=== PATIENT | female | born 1960 | race Two or more races ===

== ENCOUNTER 2019-12-11 20:00 | Inpatient (IN) | payer MEDICAID, OTHER ==
[~2019-12-11] VITALS: Ht 157.5 cm; Wt 71.0 kg
[2019-12-11 21:02] LABS: Urine Bacteria NONE SEEN /hpf (None Seen); Urine Blood Negative /uL (Negative); Urine Specific Gravity 1.004 (1.001-1.035); Urine WBC 2 /hpf (0 - 5)
[2019-12-11] MEDS ORDERED: ONDANSETRON HCL 4 MG/2 ML VIAL IV ONE (21:15)
[2019-12-11] MEDS ORDERED: MORPHINE SULFATE 4 MG/ML SYR/VIAL IV ONE (21:15)
[2019-12-11 21:18] LABS: Basophils # (auto) 0 10 ^3/uL (0-0.2); Basophils % (auto) 0.2 % (0.0-2.0); Eosinophils # (auto) 0 10 ^3/uL (0-0.8); Hematocrit 25.4 % (36.0-46.0); Hemoglobin 8.1 g/dL (12.2-16.2); Lymphocytes # (auto) 1.4 10 ^3/uL (0.4-5.4); Lymphocytes % (auto) 13.3 % (10.0-50.0); Mean Corpuscular Hemoglobin 23.8 pg (28.0-32.0); Mean Corpuscular Hgb Conc. 31.9 g/dL (32.0-36.0); Mean Corpuscular Volume 74.6 fL (80.0-100.0); Monocytes # (auto) 0.4 10 ^3/uL (0-1.3); Monocytes % (auto) 3.6 % (0.0-12.0); Neutrophils # (auto) 8.9 10 ^3/uL (1.6-8.6); Neutrophils % (auto) 82.9 % (37.0-80.0); Nucleated Red Blood Cells % 0.1 %; Platelet Count (auto) 292 10^3/uL (140-450); Red Cell Distribution Width 18.8 % (11.8-14.3); White Blood Cell 10.8 10^3/uL (4.4-10.8)
[2019-12-11 21:37] LABS: Albumin 3.5 g/dL (3.4-5.0); Potassium 4.1 mmol/L (3.5-5.1)
[2019-12-11 21:44] LABS: BUN/Creatinine Ratio 14.3; Bilirubin, Total 0.2 mg/dL (0.2-1.0); Total Protein 7.1 g/dL (6.4-8.2)
[2019-12-11 21:53] LABS: INR 0.97 (0.9-1.15)
[2019-12-11] MEDS ORDERED: IOHEXOL 350 MG/ML 100ML IJ ONE (22:28)
[2019-12-11] MEDS ORDERED: ENOXAPARIN SOD 60 MG/0.6 ML SYRINGE SC ONE (23:30)
[2019-12-12] MEDS ORDERED: NITROGLYCERIN 0.4 MG SL TAB SL PRN (01:15)
[2019-12-12] MEDS ORDERED: SODIUM CHLORIDE 0.9% 1,000 ML IV SCH (01:15)
[2019-12-12] MEDS ORDERED: ONDANSETRON HCL 4 MG/2 ML VIAL IV PRN (01:15)
[2019-12-12] MEDS ORDERED: DEXTROSE (50%) 50ML SYRG IV PRN (01:15)
[2019-12-12 02:20] VITALS: BP 133/62
--- NOTE | 2019-12-12 02:25 | NUR ---
Telemetry admit from ER RECEIVED PT FROM ER AT 0220.PT STATE "I FEEL CHEST PRESSURE BUT NOT BAD WHEN I FIRST ARRIVE". PT STAT MY PAIN IS 5/10 PLACE PT ON 2L NASAL CANNULA AND GAVE PT MORPHINE WILL CONTINUE TO MONITOR REASSESS PT AT 0352 PT STATE "MY PAIN IS STILL 5/10 GAVE PT MORPHINE WILL PAGE HOSPITALIST Continue care.
[2019-12-12] MEDS: MORPHINE SULF INJ 2 MG/ML SYRINGE 1ML IV PRN ×2 (02:39→03:53)
[2019-12-12] MEDS ORDERED: ATOR80TA PO (02:55)
[2019-12-12] MEDS ORDERED: METF-370 PO (02:55)
[2019-12-12] MEDS ORDERED: PREG75CA PO (02:55)
[2019-12-12] MEDS ORDERED: ASPI325T4 PO (03:03)
[2019-12-12] MEDS ORDERED: ALBU2TAB4 PO (03:03)
[2019-12-12] MEDS ORDERED: LISI-275 PO (03:03)
[2019-12-12] MEDS ORDERED: OMEP20TA PO (03:03)
[2019-12-12] MEDS ORDERED: PRE1T PO ×2 (03:03→03:13)
[2019-12-12] MEDS ORDERED: CLOP75TA41 PO (03:03)
[2019-12-12] MEDS ORDERED: AZIT250T9 PO (03:03)
[2019-12-12] MEDS ORDERED: METO25TA5 PO (03:03)
[2019-12-12] MEDS ORDERED: NITR0.4S29 SL (03:03)
[2019-12-12 03:10] VITALS: BP 133/62
[2019-12-12] MEDS ORDERED: PROM1SOL2 PO (03:13)
[2019-12-12] MEDS ORDERED: LOPE2CAP PO (03:13)
[2019-12-12] MEDS ORDERED: DIPH25CA6 PO (03:13)
--- NOTE | 2019-12-12 03:54 | NUR ---
Called/paged HOSPITALIST HOSPITALIST called re:CRITICAL LAB . Waiting for call back. Continue care.
--- NOTE | 2019-12-12 04:45 | NUR ---
HOSPITALIST returned call HOSPITALIST returned call, updated on patient status and reason for call, no new orders received. Continue care.
[2019-12-12 05:00] VITALS: BP 131/70
[2019-12-12] MEDS: InsuLIN REG 1unit/0.01ml Soln (100units/ml) SC SCH ×3 (06:00→17:20)
--- NOTE | 2019-12-12 07:12 | NUR ---
REASSESS PT PAIN AT 0425 PT STATE CHEST PAIN HAD WENT AWAY WILL CONTINUE CARE AND WAITING FOR CALL BACK FROM HOSPITALIST Addendum: 12/12/19 at 0735 by ANTON ELIAS RN this is for this time 0425, 12/12/19
[2019-12-12] MEDS: ACCU-CHEK COMFORT CURVE STRIP VI SCH ×4 (07:39→21:47)
--- NOTE | 2019-12-12 07:41 | NUR ---
End of shift notes Endorse care to day shift RN pt [id number], NO S/S OF DISTRESS OR SOB
--- NOTE | 2019-12-12 08:10 | NUR ---
Opening Shift Note Assumed care of patient, awake and alert. No S/S of distress/SOB or pain. Instructed on POC and to call for assist PRN. Bed at lowest locked position and call light within reach. Will continue to monitor for changes Q1hr and PRN.
--- NOTE | 2019-12-12 08:40 | NUR ---
Breanna Olmedo MAILROOM PERSONNEL at bedside
[2019-12-12 09:00] VITALS: BP 127/70
[2019-12-12] MEDS: CLOPIDOGREL BISULFATE 75 MG TAB PO SCH (09:35)
[2019-12-12] MEDS: METOPROLOL SUCCINATE XL 50 MG TAB PO SCH (09:42)
[2019-12-12] MEDS: LISINOPRIL 5 MG TAB PO SCH (09:42)
[2019-12-12] MEDS: PANTOPRAZOLE 40 MG/10 ML VIAL INJ IV SCH (10:00)
[2019-12-12] MEDS ORDERED: ASPirin 81 mg TAB PO SCH (10:00)
--- NOTE | 2019-12-12 11:00 | NUR ---
PATIENT TAKEN DOWN TO CATH[facility], NO S/S OF DISTRESS NOTED/STATED
[2019-12-12] MEDS ORDERED: LIDOCAINE 2%HCL (LOCAL ANESTH.) INJ 20ML MDV ONE (11:52)
[2019-12-12] MEDS ORDERED: ANGIOMAX 250 MG VIAL IV ONE (12:08)
[2019-12-12] MEDS ORDERED: HEPARIN SODIUM (PORCINE) 5000 UNITS/ML 1ML VIAL ONE (12:08)
[2019-12-12] MEDS ORDERED: fentaNYL CITRATE 100 MCG/2 ML VL ONE (12:09)
[2019-12-12] MEDS ORDERED: VERAPAMIL 2.5MG/ML INJ 2ML VIAL IV ONE (12:09)
[2019-12-12] MEDS ORDERED: MIDAZOLAM HCL 1MG/1ML-2 ML VIAL ONE (12:09)
[2019-12-12] MEDS ORDERED: SODIUM CHL 0.9% 0 ML ONE (12:09)
[2019-12-12] MEDS ORDERED: IOHEXOL 350 MG/ML 100ML IJ ONE (12:22)
[2019-12-12] MEDS: SODIUM CHLORIDE 0.9% 1,000 ML IV SCH (13:00)
[2019-12-12] MEDS ORDERED: ALBUTEROL SULF 2.5 MG/0.5ML(0.5%) NEB SOLN NEB PRN (13:00)
[2019-12-12] MEDS ORDERED: IPRATROPIUM BROM 0.5 MG/2.5ML INH SOL NEB PRN (13:00)
[2019-12-12 13:18] LABS: % Iron Saturation 3.5 % (15-50)
--- NOTE | 2019-12-12 14:13 | NUR ---
PATIENT RETURNED FROM [facility] PATIENT RETURNED FROM [facility] NO SIGNS AND SYMPTOMS OF DISTRESS , BED IS AT LOWEST POSITION ,BED RAILS UP X2 , PATIENTS CALL LIGHT IS WITHIN REACH . REMOVED 2ML OF AIR FROM THE VASBAND WILL CONTINUE TO MONITOR Q1H OR PRN.
--- NOTE | 2019-12-12 14:30 | NUR ---
REMOVED 2ML OF AIR FROM THE VASBAND WILL CONTINUE TO MONITOR Q1H and PRN.
--- NOTE | 2019-12-12 15:00 | NUR ---
Updated family after password was verified.
--- NOTE | 2019-12-12 16:40 | NUR ---
Patient's sisterSylvie is requesting information on patient. Per Patient do not give her information. I will talk to her. Addendum: 12/12/19 at 1702 by Judy Ferro RN patient approved to update patient's sister Sylvie.
[2019-12-12 17:00] VITALS: BP 129/66
--- NOTE | 2019-12-12 17:33 | NUR ---
Family is requesting to speak to MD,for further information on imaging and procedures. Please contact [facility]K, thank you.
--- NOTE | 2019-12-12 18:42 | NUR ---
closing shift note Patient is comfortably resting in bed. No s/s of distress/sob noted/stated. Bed at lowest locked position and call light within reach. Will endorse care to NOC RN.
--- NOTE | 2019-12-12 19:05 | NUR ---
Opening Shift Note Assumed care of patient, awake and alert. No S/S of distress/SOB or pain. Instructed on POC and to call for assist PRN, will continue to monitor for changes Q1hr and PRN.
[2019-12-12 22:00] VITALS: BP 109/70
[2019-12-12] MEDS ORDERED: ATORVASTATIN 20 MG TAB PO SCH (22:00)
--- NOTE | 2019-12-12 22:31 | NUR ---
obtained an order for keshav patient request from hospitalist.
[2019-12-12] MEDS: PREGABALIN CAPSULE 75 MG CAP PO SCH (23:07)
--- NOTE | 2019-12-12 23:45 | NUR ---
IV removal IV DC'd with clean sterile technique, catheter fully intact. Pressure dressing applied to site. Patient tolerated well. NOTE:
--- NOTE | 2019-12-12 23:56 | NUR ---
IV insertion IV access obtained, via clean sterile technique by inserting Left hand 22 gauge catheter at after 1 attempt. IV secured properly. No trauma to site. Patient tolerated well. NOTE:
[2019-12-13] MEDS: InsuLIN REG 1unit/0.01ml Soln (100units/ml) SC SCH ×3 (01:16→11:15)
[2019-12-13 05:00] VITALS: BP 107/66
[2019-12-13] MEDS: SODIUM CHLORIDE 0.9% 1,000 ML IV SCH (05:52)
[2019-12-13] MEDS: ACCU-CHEK COMFORT CURVE STRIP VI SCH ×2 (05:59→11:15)
[2019-12-13 06:04] LABS: Basophils # (auto) 0.1 10 ^3/uL (0-0.2); Basophils % (auto) 1.2 % (0.0-2.0); Eosinophils # (auto) 0.2 10 ^3/uL (0-0.8); Eosinophils % (auto) 2.1 % (0.0-7.0); Hematocrit 24.3 % (36.0-46.0); Hemoglobin 7.9 g/dL (12.2-16.2); Lymphocytes # (auto) 3.3 10 ^3/uL (0.4-5.4); Mean Corpuscular Hgb Conc. 32.5 g/dL (32.0-36.0); Mean Corpuscular Volume 73.8 fL (80.0-100.0); Monocytes # (auto) 0.5 10 ^3/uL (0-1.3); Monocytes % (auto) 7.1 % (0.0-12.0); Neutrophils # (auto) 3.6 10 ^3/uL (1.6-8.6); Neutrophils % (auto) 46.6 % (37.0-80.0); Nucleated Red Blood Cells % 0.1 %; Platelet Count (auto) 273 10^3/uL (140-450); Red Blood Cells 3.29 10^6/uL (4.0-5.20); Red Cell Distribution Width 18.4 % (11.8-14.3); White Blood Cell 7.6 10^3/uL (4.4-10.8)
[2019-12-13 06:21] LABS: Potassium 3.8 mmol/L (3.5-5.1)
[2019-12-13 06:34] LABS: Albumin 3.1 g/dL (3.4-5.0); BUN/Creatinine Ratio 21.3; Bilirubin, Total 0.2 mg/dL (0.2-1.0); Calcium 8.3 mg/dL (8.5-10.1); Total Protein 6.2 g/dL (6.4-8.2)
--- NOTE | 2019-12-13 06:41 | NUR ---
CRITICAL VALUE REPORT FROM LIZBETH OF LAB TROP I OF 0.591. TRENDING DOWN. S/P LEFT HEART CATHETER. WILL CONTINUE TO MONITOR PATIENT.
--- NOTE | 2019-12-13 07:30 | NUR ---
Opening Shift Note Assuming care of patient at this time. Patient is awake and alert. Patient denies pain. Patient shows no signs or symptoms of distress or shortness of breath. Bed is locked and lowered with side rails up x2. Instructed patient on the plan of care for today and to call for assistance as needed. Call light within reach.
[2019-12-13 09:00] VITALS: BP 95/51
[2019-12-13] MEDS ORDERED: ASPirin 81 mg TAB PO SCH (10:00)
--- NOTE | 2019-12-13 10:10 | NUR ---
Dr. Finch and Cardiology at bedside Dr. Finch and Mony Olmedo, TRANSISTOR TESTER, at bedside discussing plan of care with patient. Call to daughter at bedside to further answer questions and clarify plan of care. All questions and concerns addressed. Patient and daughter verbalized understanding. Patient and daughter aware that if patient develops any symptoms at all in relation to chest pain, diaphoresis, dizziness, etc. to return to emergency room immediately.
[2019-12-13] MEDS: PANTOPRAZOLE 40 MG/10 ML VIAL INJ IV SCH (10:49)
[2019-12-13] MEDS: LISINOPRIL 5 MG TAB PO SCH (10:50)
[2019-12-13] MEDS: CLOPIDOGREL BISULFATE 75 MG TAB PO SCH (10:50)
[2019-12-13] MEDS: METOPROLOL SUCCINATE XL 50 MG TAB PO SCH (10:51)
[2019-12-13] MEDS: PREGABALIN CAPSULE 75 MG CAP PO SCH (11:02)
--- NOTE | 2019-12-13 11:28 | NUR ---
Respiratory note: PT ASSESSED FOR PRN MEDNEB. PT ON ROOM AIR POX 96%. PT IN NO DISTRESS AT THIS TIME. NO TX INDICATED. PT AWARE TO HAVE RT PAGED IF SOB.
[2019-12-13 13:00] VITALS: BP 159/69
--- NOTE | 2019-12-13 17:00 | NUR ---
Discharge Discharge instructions given as ordered. Encourage to follow up with PMD as instructed. All questions and concerns addressed. Patient verbalized understanding. Medication reconciliation form completed and copy given to patient. Home medications held in Pharmacy returned to patient. IV removed with catheter intact, pressure dressing applied. Telemetry unit returned to ICU. Patient taken to vehicle via wheelchair with all personal belongings, accompanied by staff. No distress noted at time of departure.
== END 2019-12-13 17:00 | disposition home or self-care (01) | DRG 190 ==
LOC: EDBD 20:00 → ER 20:04 → TELE 20:05 → TELE-WESTW 12-12 02:20
PROVIDERS: ADMIT Nurse Practitioner; ATTEND Internal Medicine
PROC: 4A023N7 Measurement of Cardiac Sampling and Pressure, Left Heart, Percutaneous Approach (ICD-10-PCS; principal; 2019-12-11)
PROC: B2111ZZ Fluoroscopy of Multiple Coronary Arteries using Low Osmolar Contrast (ICD-10-PCS; 2019-12-11)
PROC: B2151ZZ Fluoroscopy of Left Heart using Low Osmolar Contrast (ICD-10-PCS; 2019-12-11)
DX: I21.4 Non-ST elevation (NSTEMI) myocardial infarction (principal); I25.110 Atherosclerotic heart disease of native coronary artery with unstable angina pectoris; I11.0 Hypertensive heart disease with heart failure; E78.5 Hyperlipidemia, unspecified; D64.9 Anemia, unspecified; I50.43 Acute on chronic combined systolic (congestive) and diastolic (congestive) heart failure; J44.9 Chronic obstructive pulmonary disease, unspecified; E11.51 Type 2 diabetes mellitus with diabetic peripheral angiopathy without gangrene; Z95.5 Presence of coronary angioplasty implant and graft; Z80.0 Family history of malignant neoplasm of digestive organs; Z79.84 Long term (current) use of oral hypoglycemic drugs; Z82.49 Family history of ischemic heart disease and other diseases of the circulatory system; Z83.3 Family history of diabetes mellitus; Z82.5 Family history of asthma and other chronic lower respiratory diseases; K21.9 Gastro-esophageal reflux disease without esophagitis; I25.2 Old myocardial infarction; N28.1 Cyst of kidney, acquired; M40.204 Unspecified kyphosis, thoracic region; I70.0 Atherosclerosis of aorta
CPT/HCPCS: 36415; 71045; 71275; 80053; 80061; 81001; 82962; 83036; 83540; 83550; 83735; 83880; 84443; 84484; 85025; 85379; 85610; 85730; 86850; 86900; 86901; 93005; 93306; 93458; 93886; 94640; 96372; 96374; 96375; 99152; C1887; C9113; G0378; J1815; J2250; J2405